=== PATIENT | male | born 1985 | race Two or more races ===

== ENCOUNTER 2018-03-10 20:11 | Emergency (ER) | payer SELFPAY ==
[~2018-03-10] VITALS: Ht 188 cm; Wt 90.7 kg
[2018-03-10 21:32] VITALS: BP 126/95
== END 2018-03-10 21:58 | disposition home or self-care (01) ==
LOC: ER 20:15
DX: B35.6 Tinea cruris (principal)
CPT/HCPCS: 99283; A4606; Z7610